=== PATIENT | male | born 1950 ===

== ENCOUNTER 2017-02-21 06:56 | Day surgery (SDC) | payer MEDICARE ==
[2017-02-21 07:14] VITALS: BMI 25.7
[2017-02-21] MEDS ORDERED: Midazolam 2 MG/2 ML VIAL ONE (09:30)
[2017-02-21] MEDS ORDERED: Propofol 10 mg/ml Inj (20 ML) ONE (09:31)
[2017-02-21] MEDS ORDERED: Simethicone 40 mg/0.6 ml Liquid (30 ml) ONE (09:37)
[2017-02-21 10:02] VITALS: TEMP 97.3
[2017-02-21 10:28] VITALS: O2SAT 100
[2017-02-21 13:05] VITALS: BP 111/62; PULSE 55; RESP 12
== END 2017-02-21 11:50 | disposition home or self-care (01) ==
LOC: C.ENDO 06:56
PROVIDERS: ATTEND Internal Medicine Gastroenterology
DX: K64.8 Other hemorrhoids (principal); K59.00 Constipation, unspecified
CPT/HCPCS: 45378; J2250; J2704